=== PATIENT | female | born 1960 | race Caucasian/White ===

== ENCOUNTER 2018-08-11 18:40 | Emergency (ER) | payer MEDICARE, OTHER ==
[~2018-08-11] VITALS: Ht 160 cm; Wt 70.3 kg
[~2018-08-11 18:40] MED LIST: ALBU90OI; ASPI81EC; CALGLU500; CETI10; CLON1; CYAN1000; DOCUSATE; LEVFLO250 PO; LEVFLO500 PO; OXYACE5T PO; OXYACE7.5T; OXYACE7.5T PO; PANT40 PO; PHENA200 PO; PROM25 PO; RANI150; RXOXYACE PO; SERT100; TRIAOIA
[2018-08-11] MEDS ORDERED: PENVK500 PO (20:13)
== END 2018-08-11 20:27 | disposition home or self-care (01) ==
LOC: ER 18:40
DX: K08.89 Other specified disorders of teeth and supporting structures (principal); Z88.2 Allergy status to sulfonamides; Z88.8 Allergy status to other drugs, medicaments and biological substances; Z88.5 Allergy status to narcotic agent; Z79.899 Other long term (current) drug therapy; Z79.82 Long term (current) use of aspirin; Z79.891 Long term (current) use of opiate analgesic
CPT/HCPCS: 64400; 99282-25; J1170

== ENCOUNTER 2019-07-28 13:01 | Emergency (ER) | payer MEDICARE, OTHER ==
[~2019-07-28] VITALS: Ht 162.6 cm; Wt 74.8 kg
[~2019-07-28 13:01] MED LIST changes: +PENVK500 PO
[2019-07-28] MEDS ORDERED: TOPICAINE113 GM TOP ×3 (14:21→15:12)
[2019-07-28] MEDS ORDERED: HYDMOR4 PO ×3 (14:21→15:12)
[2019-07-28] MEDS ORDERED: Amoxicillin500 MG PO ×3 (14:21→15:12)
== END 2019-07-28 14:39 | disposition home or self-care (01) ==
LOC: ER 13:01
DX: K04.7 Periapical abscess without sinus (principal); E03.9 Hypothyroidism, unspecified; Z88.8 Allergy status to other drugs, medicaments and biological substances; Z88.6 Allergy status to analgesic agent; Z88.2 Allergy status to sulfonamides; Z88.5 Allergy status to narcotic agent; Z79.899 Other long term (current) drug therapy; Z79.82 Long term (current) use of aspirin
CPT/HCPCS: 82947; 99283

== ENCOUNTER 2021-04-12 19:22 | Emergency (ER) | payer MEDICARE, OTHER ==
[~2021-04-12] VITALS: Ht 160 cm; Wt 73.9 kg
[~2021-04-12 19:22] MED LIST changes: +Amoxicillin500 MG PO; +CARV3.125 PO; +HYDMOR4 PO; +LEVOTHYROXINE PO; +METH10 PO; +ONDA4ODT SL; +SERT100 PO; +TOPICAINE113 GM TOP
[2021-04-13] MEDS ORDERED: CLOBET30L TOP (01:26)
== END 2021-04-12 20:30 | disposition left against medical advice (07) ==
LOC: ER 19:22
DX: K13.70 Unspecified lesions of oral mucosa (principal); Z53.21 Procedure and treatment not carried out due to patient leaving prior to being seen by health care provider

== ENCOUNTER 2021-05-26 19:14 | Emergency (ER) | payer OTHER ==
[~2021-05-26] VITALS: Ht 160 cm; Wt 77.1 kg
[~2021-05-26 19:14] MED LIST changes: +ABILIFY5 MG PO; +CLOBET30L TOP; +CYCL10 PO
[2021-05-26 20:00] LABS: BASOPHILS ABSOLUTE AUTO 0.02 K/mm3 (0.00-0.23); BASOPHILS PERCENT AUTO 1 % (0-2); EOSINOPHILS ABSOLUTE AUTO 0.13 K/mm3 (0.00-0.68); EOSINOPHILS PERCENT AUTO 3 % (0-6); Hematocrit 39.2 % (33.0-51.0); Hemoglobin 12.8 g/dL (11.5-16.0); IMMATURE GRAN ABSOLUTE AUTO 0.02 K/mm3 (0.00-0.10); IMMATURE GRAN PERCENT AUTO 1 % (0-1); LYMPHOCYTES ABSOLUTE AUTO 1.59 K/mm3 (0.84-5.20); LYMPHOCYTES PERCENT AUTO 37 % (21-46); MONOCYTES ABSOLUTE AUTO 0.37 K/mm3 (0.16-1.47); MONOCYTES PERCENT AUTO 9 % (4-13); Mean Corpuscular HGB Conc 32.7 g/dL (31.5-36.5); Mean Corpuscular Volume 89 fL (80-100); NEUTROPHILS ABSOLUTE AUTO 2.17 K/mm3 (1.96-9.15); NEUTROPHILS PERCENT AUTO 50 % (41-73); RDW Coefficient Variation 12.9 % (11.7-14.2); RDW Standard Deviation 42.3 fL (35.1-46.3); Red Blood Cell Count 4.41 M/mm3 (3.80-5.20)
[2021-05-26 20:01] LABS: Mean Platelet Volume 10.5 fL (9.1-12.4)
[2021-05-26 20:18] LABS: Alanine Aminotransfer (ALT/SGP 32 U/L (12-78); Albumin, Blood 3.2 g/dL (3.4-5.0); Albumin/Globulin Ratio 0.9 (0.8-1.8); Alk Phos 146 U/L (50-136); Anion Gap 5 mmol/L (6-16); Aspartate Aminotrans (AST/SGOT 35 U/L (12-37); Bilirubin, Total 0.3 mg/dL (0.1-1.0); Blood Urea Nitrogen 23 mg/dL (8-24); Bun/Creatinine Ratio 27.3 (12.0-20.0); CO2, Blood 28 mmol/L (21-32); Calcium, Blood 8.8 mg/dL (8.5-10.1); Chloride, Blood 107 mmol/L (98-108); Creatinine, Blood 0.84 mg/dL (0.40-1.00); Globulin, Blood 3.5 g/dL (2.2-4.0); Glomerular Filtration Rate >60 (60-); Glucose, Blood 102 mg/dL (70-99); Potassium, Blood 4.3 mmol/L (3.5-5.5); Sodium, Blood 140 mmol/L (136-145); Total Protein, Blood 6.7 g/dL (6.4-8.2)
== END 2021-05-26 21:50 | disposition home or self-care (01) ==
LOC: ER 19:14
PROVIDERS: Physician Assistant
DX: R60.0 Localized edema (principal); Z88.2 Allergy status to sulfonamides; Z88.8 Allergy status to other drugs, medicaments and biological substances; E03.9 Hypothyroidism, unspecified; Z79.899 Other long term (current) drug therapy
CPT/HCPCS: 71045; 80053; 84484; 85025; 93005; 93010; 93970; 99285-25

== ENCOUNTER → 2022-02-02 | Outpatient (CLI) | payer OTHER ==
[2022-02-03 10:39] LABS: Candida species (DNA Probe) Negative (NEGATIVE); G. vaginalis (DNA Probe) Negative (NEGATIVE); T. vaginalis (DNA Probe) Negative (NEGATIVE)
== END ==
LOC: LAB SHORT 15:35 → LAB 15:35
PROVIDERS: Advanced Practice Midwife
DX: N76.0 Acute vaginitis (principal)
CPT/HCPCS: 87480; 87510; 87660

== ENCOUNTER → 2022-03-25 | Outpatient (CLI) | payer OTHER | END | disposition home or self-care (01) | LOC: LAB SHORT 14:18 | DX: L08.9 Local infection of the skin and subcutaneous tissue, unspecified (principal) | CPT/HCPCS: 87070; 87075; 87077; 87186; 87205 ==

== ENCOUNTER 2022-04-07 11:23 | Emergency (ER) | payer OTHER ==
[~2022-04-07] VITALS: Ht 162.6 cm; Wt 72.6 kg
[2022-04-07 11:55] LABS: BASOPHILS ABSOLUTE AUTO 0.03 K/mm3 (0.00-0.23); BASOPHILS PERCENT AUTO 1 % (0-2); EOSINOPHILS ABSOLUTE AUTO 0.11 K/mm3 (0.00-0.68); EOSINOPHILS PERCENT AUTO 4 % (0-6); Hematocrit 40.2 % (33.0-51.0); Hemoglobin 13.5 g/dL (11.5-16.0); IMMATURE GRAN PERCENT AUTO 0 % (0-1); LYMPHOCYTES ABSOLUTE AUTO 1.53 K/mm3 (0.84-5.20); LYMPHOCYTES PERCENT AUTO 51 % (21-46); MONOCYTES ABSOLUTE AUTO 0.26 K/mm3 (0.16-1.47); MONOCYTES PERCENT AUTO 9 % (4-13); Mean Corpuscular HGB 29.2 pg (26.0-34.0); Mean Corpuscular HGB Conc 33.6 g/dL (31.5-36.5); Mean Corpuscular Volume 87 fL (80-100); Mean Platelet Volume 10.1 fL (9.1-12.4); NEUTROPHILS ABSOLUTE AUTO 1.07 K/mm3 (1.96-9.15); NEUTROPHILS PERCENT AUTO 36 % (41-73); Platelet Count 145 K/mm3 (150-400); RDW Coefficient Variation 12.7 % (11.7-14.2); RDW Standard Deviation 39.9 fL (35.1-46.3); Red Blood Cell Count 4.62 M/mm3 (3.80-5.20)
[2022-04-07] MEDS ORDERED: SERTRALINE HCL PO (12:04)
[2022-04-07] MEDS ORDERED: EUTHYROX50 MC1 PO (12:04)
[2022-04-07] MEDS ORDERED: METHADONE HCL PO (12:05)
[2022-04-07 12:09] LABS: Albumin, Blood 3.5 g/dL (3.4-5.0); Albumin/Globulin Ratio 1.1 (0.8-1.8); Bilirubin, Total 0.5 mg/dL (0.1-1.0); Bun/Creatinine Ratio 25.4 (12.0-20.0); Creatinine, Blood 0.91 mg/dL (0.40-1.00); Globulin, Blood 3.3 g/dL (2.2-4.0); Potassium, Blood 3.8 mmol/L (3.5-5.5); Total Protein, Blood 6.8 g/dL (6.4-8.2)
[2022-04-07] MEDS ORDERED: Norflex100 MG PO (14:22)
== END 2022-04-07 15:14 | disposition home or self-care (01) ==
LOC: ER 11:23
PROVIDERS: Physician Assistant
DX: R07.89 Other chest pain (principal); E03.9 Hypothyroidism, unspecified; I25.2 Old myocardial infarction; Z79.899 Other long term (current) drug therapy
CPT/HCPCS: 36415; 71046; 80053; 83880; 84484; 85025; 93005; 93010; 99285-25; A9270

== ENCOUNTER 2023-03-19 18:09 | Emergency (ER) | payer OTHER ==
[~2023-03-19] VITALS: Ht 165.1 cm; Wt 77.1 kg
[~2023-03-19 18:09] MED LIST changes: +EUTHYROX50 MC1 PO; +METHADONE HCL PO; +Norflex100 MG PO; +SERTRALINE HCL PO
[2023-03-19 18:23] VITALS: BP 187/96
[2023-03-19] MEDS ORDERED: MECL12.5 PO ×2 (18:53→21:01)
[2023-03-19] MEDS ORDERED: FLUT.05NI (18:53)
[2023-03-19 19:17] LABS: BASOPHILS ABSOLUTE AUTO 0.04 K/mm3 (0.00-0.23); BASOPHILS PERCENT AUTO 1 % (0-2); EOSINOPHILS ABSOLUTE AUTO 0.13 K/mm3 (0.00-0.68); EOSINOPHILS PERCENT AUTO 3 % (0-6); Hemoglobin 12.5 g/dL (11.5-16.0); IMMATURE GRAN PERCENT AUTO 0 % (0-1); LYMPHOCYTES ABSOLUTE AUTO 1.68 K/mm3 (0.84-5.20); LYMPHOCYTES PERCENT AUTO 43 % (21-46); MONOCYTES PERCENT AUTO 8 % (4-13); Mean Corpuscular HGB 27.5 pg (26.0-34.0); Mean Corpuscular HGB Conc 32.9 g/dL (31.5-36.5); Mean Corpuscular Volume 84 fL (80-100); Mean Platelet Volume 9.6 fL (9.1-12.4); NEUTROPHILS PERCENT AUTO 46 % (41-73); Platelet Count 151 K/mm3 (150-400); RDW Coefficient Variation 13.9 % (11.7-14.2); RDW Standard Deviation 42.6 fL (35.1-46.3); Red Blood Cell Count 4.55 M/mm3 (3.80-5.20); White Blood Cell Count 3.95 K/mm3 (4.00-11.30)
[2023-03-19 19:40] LABS: Albumin, Blood 3.3 g/dL (3.4-5.0); Albumin/Globulin Ratio 0.9 (0.8-1.8); Bilirubin, Total 0.4 mg/dL (0.1-1.0); Bun/Creatinine Ratio 23.8 (12.0-20.0); Calcium, Blood 9.2 mg/dL (8.5-10.1); Creatinine, Blood 0.93 mg/dL (0.40-1.00); Globulin, Blood 3.8 g/dL (2.2-4.0); Potassium, Blood 2.9 mmol/L (3.5-5.5); Total Protein, Blood 7.1 g/dL (6.4-8.2)
[2023-03-19] MEDS ORDERED: AMOCLA875 PO (21:01)
[2023-03-19] MEDS ORDERED: POTA20PAC PO (21:01)
[2023-03-19] MEDS ORDERED: PROM25 PO (21:01)
== END 2023-03-19 21:24 | disposition home or self-care (01) ==
LOC: ER 18:09
PROVIDERS: Student in an Organized Health Care Education/Training Program
DX: E87.6 Hypokalemia (principal); J32.9 Chronic sinusitis, unspecified; E03.9 Hypothyroidism, unspecified; I25.2 Old myocardial infarction; Z79.899 Other long term (current) drug therapy; Z88.2 Allergy status to sulfonamides; Z88.5 Allergy status to narcotic agent; Z88.6 Allergy status to analgesic agent; Z88.8 Allergy status to other drugs, medicaments and biological substances
CPT/HCPCS: 80053; 85025; 93005; 93010; 96360; 99284-25; A9270; J7030

== ENCOUNTER 2023-04-26 18:24 | Emergency (ER) | payer OTHER ==
[~2023-04-26] VITALS: Ht 160 cm; Wt 81.7 kg
[~2023-04-26 18:24] MED LIST changes: +AMOCLA875 PO; +FLUT.05NI; +MECL12.5 PO; +POTA20PAC PO
[2023-04-26 19:58] LABS: BASOPHILS ABSOLUTE AUTO 0.03 K/mm3 (0.00-0.23); BASOPHILS PERCENT AUTO 1 % (0-2); EOSINOPHILS ABSOLUTE AUTO 0.11 K/mm3 (0.00-0.68); EOSINOPHILS PERCENT AUTO 3 % (0-6); Hematocrit 40.8 % (33.0-51.0); Hemoglobin 13.3 g/dL (11.5-16.0); IMMATURE GRAN PERCENT AUTO 0 % (0-1); LYMPHOCYTES ABSOLUTE AUTO 1.56 K/mm3 (0.84-5.20); LYMPHOCYTES PERCENT AUTO 38 % (21-46); MONOCYTES ABSOLUTE AUTO 0.31 K/mm3 (0.16-1.47); MONOCYTES PERCENT AUTO 8 % (4-13); Mean Corpuscular HGB 27.1 pg (26.0-34.0); Mean Corpuscular HGB Conc 32.6 g/dL (31.5-36.5); Mean Corpuscular Volume 83 fL (80-100); NEUTROPHILS ABSOLUTE AUTO 2.09 K/mm3 (1.96-9.15); NEUTROPHILS PERCENT AUTO 51 % (41-73); Platelet Count 174 K/mm3 (150-400); RDW Coefficient Variation 13.9 % (11.7-14.2); RDW Standard Deviation 42.2 fL (35.1-46.3)
[2023-04-26 20:18] LABS: Albumin, Blood 3.6 g/dL (3.4-5.0); Albumin/Globulin Ratio 0.9 (0.8-1.8); Bilirubin, Total 0.7 mg/dL (0.1-1.0); Bun/Creatinine Ratio 13.2 (12.0-20.0); Calcium, Blood 9.5 mg/dL (8.5-10.1); Creatinine, Blood 0.83 mg/dL (0.40-1.00); Globulin, Blood 3.9 g/dL (2.2-4.0); Potassium, Blood 3.5 mmol/L (3.5-5.5); Total Protein, Blood 7.5 g/dL (6.4-8.2)
[2023-04-26] MEDS ORDERED: METPRE4DP PO (22:03)
[2023-04-26] MEDS ORDERED: Methadone HCL 10 MG TAB PO ONE (22:10)
[2023-04-26] MEDS ORDERED: CloNIDine 0.1 MG Tab SL ONE (22:10)
[2023-04-26] MEDS ORDERED: PredniSONE 20 MG Tab PO ONE (22:10)
[2023-04-26 22:58] VITALS: BP 167/107
== END 2023-04-26 23:08 | disposition home or self-care (01) ==
LOC: ER 18:24
PROVIDERS: Physician Assistant
DX: M54.16 Radiculopathy, lumbar region (principal); M54.12 Radiculopathy, cervical region; I10 Essential (primary) hypertension; F11.23 Opioid dependence with withdrawal; Z88.2 Allergy status to sulfonamides; Z88.6 Allergy status to analgesic agent; Z88.8 Allergy status to other drugs, medicaments and biological substances; Z79.51 Long term (current) use of inhaled steroids; Z79.899 Other long term (current) drug therapy
CPT/HCPCS: 72126; 72132; 80053; 85025; 99284-25; A9270; J7512; Q9967

== ENCOUNTER 2023-10-26 10:45 | Emergency (ER) | payer MEDICARE, OTHER ==
[~2023-10-26] VITALS: Ht 160 cm; Wt 94.3 kg
[~2023-10-26 10:45] MED LIST changes: +LOSARTAN-HCTZ1 EAC5 PO; +METPRE4DP PO
[2023-10-26 11:20] LABS: BASOPHILS ABSOLUTE AUTO 0.02 K/mm3 (0.00-0.23); BASOPHILS PERCENT AUTO 0 % (0-2); EOSINOPHILS ABSOLUTE AUTO 0.14 K/mm3 (0.00-0.68); EOSINOPHILS PERCENT AUTO 3 % (0-6); Hematocrit 37.5 % (33.0-51.0); Hemoglobin 12.4 g/dL (11.5-16.0); IMMATURE GRAN ABSOLUTE AUTO 0.01 K/mm3 (0.00-0.10); IMMATURE GRAN PERCENT AUTO 0 % (0-1); LYMPHOCYTES PERCENT AUTO 38 % (21-46); MONOCYTES ABSOLUTE AUTO 0.34 K/mm3 (0.16-1.47); MONOCYTES PERCENT AUTO 8 % (4-13); Mean Corpuscular HGB 28.6 pg (26.0-34.0); Mean Corpuscular HGB Conc 33.1 g/dL (31.5-36.5); Mean Corpuscular Volume 86 fL (80-100); NEUTROPHILS ABSOLUTE AUTO 2.25 K/mm3 (1.96-9.15); NEUTROPHILS PERCENT AUTO 51 % (41-73); Platelet Count 158 K/mm3 (150-400); RDW Coefficient Variation 13.2 % (11.7-14.2); RDW Standard Deviation 41.8 fL (35.1-46.3); Red Blood Cell Count 4.34 M/mm3 (3.80-5.20); White Blood Cell Count 4.46 K/mm3 (4.00-11.30)
[2023-10-26 11:52] LABS: Albumin, Blood 3.3 g/dL (3.4-5.0); Albumin/Globulin Ratio 0.8 (0.8-1.8); Bilirubin, Total 0.5 mg/dL (0.1-1.0); Bun/Creatinine Ratio 19.5 (12.0-20.0); Calcium, Blood 9.1 mg/dL (8.5-10.1); Creatinine, Blood 0.92 mg/dL (0.40-1.00); Globulin, Blood 3.9 g/dL (2.2-4.0); Potassium, Blood 3.4 mmol/L (3.5-5.5); Total Protein, Blood 7.2 g/dL (6.4-8.2)
[2023-10-26] MEDS ORDERED: TraMADol HCl 50 MG Tab PO ONE (14:40)
[2023-10-26] MEDS ORDERED: Lasix20 MG PO (16:24)
[2023-10-26 16:30] VITALS: BP 175/101
== END 2023-10-26 16:48 | disposition home or self-care (01) ==
LOC: ER 10:45
PROVIDERS: Physician Assistant
DX: R60.0 Localized edema (principal); E03.9 Hypothyroidism, unspecified; I21.4 Non-ST elevation (NSTEMI) myocardial infarction; Z79.899 Other long term (current) drug therapy; Z79.51 Long term (current) use of inhaled steroids; Z88.6 Allergy status to analgesic agent; Z88.2 Allergy status to sulfonamides; Z88.5 Allergy status to narcotic agent; Z88.8 Allergy status to other drugs, medicaments and biological substances
CPT/HCPCS: 71046; 80053; 83880; 84484; 85025; 93005; 93010; 93970; 99284-25; A9270

== ENCOUNTER 2024-01-02 13:31 | Emergency (ER) | payer MEDICARE, OTHER ==
[~2024-01-02] VITALS: Ht 162.6 cm; Wt 86.2 kg
[~2024-01-02 13:31] MED LIST changes: +LIDO700A20 TOP; +Lasix20 MG PO; +PANTOPRAZOLE SO40 M2 PO; +Robaxin750 MG PO
[2024-01-02 14:23] LABS: BASOPHILS ABSOLUTE AUTO 0.03 K/mm3 (0.00-0.23); BASOPHILS PERCENT AUTO 1 % (0-2); EOSINOPHILS ABSOLUTE AUTO 0.16 K/mm3 (0.00-0.68); EOSINOPHILS PERCENT AUTO 4 % (0-6); Hematocrit 36.9 % (33.0-51.0); Hemoglobin 11.9 g/dL (11.5-16.0); IMMATURE GRAN ABSOLUTE AUTO 0.01 K/mm3 (0.00-0.10); IMMATURE GRAN PERCENT AUTO 0 % (0-1); LYMPHOCYTES PERCENT AUTO 36 % (21-46); MONOCYTES ABSOLUTE AUTO 0.31 K/mm3 (0.16-1.47); MONOCYTES PERCENT AUTO 7 % (4-13); Mean Corpuscular HGB 27.6 pg (26.0-34.0); Mean Corpuscular HGB Conc 32.2 g/dL (31.5-36.5); Mean Corpuscular Volume 86 fL (80-100); Mean Platelet Volume 9.9 fL (9.1-12.4); NEUTROPHILS ABSOLUTE AUTO 2.31 K/mm3 (1.96-9.15); NEUTROPHILS PERCENT AUTO 52 % (41-73); Platelet Count 171 K/mm3 (150-400); RDW Coefficient Variation 13.2 % (11.7-14.2); Red Blood Cell Count 4.31 M/mm3 (3.80-5.20); White Blood Cell Count 4.42 K/mm3 (4.00-11.30)
[2024-01-02 15:24] LABS: Albumin, Blood 3.4 g/dL (3.4-5.0); Albumin/Globulin Ratio 1.1 (0.8-1.8); Bilirubin, Total 0.4 mg/dL (0.1-1.0); Bun/Creatinine Ratio 18.8 (12.0-20.0); Creatinine, Blood 0.96 mg/dL (0.40-1.00); Globulin, Blood 3.2 g/dL (2.2-4.0); Potassium, Blood 3.5 mmol/L (3.5-5.5); Total Protein, Blood 6.6 g/dL (6.4-8.2)
[2024-01-02] MEDS ORDERED: TraMADol HCl 50 MG Tab PO ONE (21:05)
[2024-01-02 21:34] LABS: Source, Urine Clean Catch
[2024-01-02 21:36] LABS: Bilirubin, Urine Neg (Neg); Blood, Urine Neg (Neg); Glucose Qualitative, Urine Neg (Neg); Ketones, Urine Neg (Neg); Leukocyte Esterase, Urine 1+ (Neg); Nitrite, Urine Neg (Neg); Protein, Urine Neg (Neg); Specific Gravity, Urine 1.015 (1.003-1.022); Urobilinogen, Urine NORM (Normal)
[2024-01-02 21:49] LABS: Appearance, Urine Clear (Clear); Bacteria Not Seen /hpf; Calcium Oxalate Crystals Many /hpf; Color, Urine Yellow (P-Yellow); Red Blood Cells, Urine Not Seen /hpf (0-2); Squamous Epithelial Cells Not Seen /hpf (Few); White Blood Cells, Urine 0-2 /hpf (0-5)
[2024-01-02 22:15] VITALS: BP 161/101
== END 2024-01-02 23:14 | disposition home or self-care (01) ==
LOC: ER 13:31
PROVIDERS: Physician Assistant
DX: R51.9 Headache, unspecified (principal); R32 Unspecified urinary incontinence; E03.9 Hypothyroidism, unspecified; I25.2 Old myocardial infarction; Z88.8 Allergy status to other drugs, medicaments and biological substances; Z88.6 Allergy status to analgesic agent; Z88.2 Allergy status to sulfonamides; Z88.5 Allergy status to narcotic agent; Z79.899 Other long term (current) drug therapy; Z79.890 Hormone replacement therapy
CPT/HCPCS: 70450; 80053; 81001; 85025; 99284-25; A9270

== ENCOUNTER → 2024-01-31 | Outpatient (CLI) | payer MEDICARE, OTHER ==
[2024-01-31 18:58] LABS: Appearance, Urine Clear (Clear); Bilirubin, Urine Neg (Neg); Blood, Urine Neg (Neg); Color, Urine Yellow (P-Yellow); Glucose Qualitative, Urine Neg (Neg); Ketones, Urine Neg (Neg); Leukocyte Esterase, Urine 1+ (Neg); Nitrite, Urine Neg (Neg); Protein, Urine 1+ (Neg); Specific Gravity, Urine 1.015 (1.003-1.022); Urobilinogen, Urine NORM (Normal)
[2024-01-31 19:11] LABS: Bacteria Many /hpf; Mucus Light (0-Heavy); Red Blood Cells, Urine 0-2 /hpf (0-2); Squamous Epithelial Cells Few /hpf (Few)
== END | disposition home or self-care (01) ==
LOC: LAB SHORT 18:50
PROVIDERS: Family Medicine
DX: N39.46 Mixed incontinence (principal)
CPT/HCPCS: 81001

== ENCOUNTER → 2024-02-22 | Outpatient (CLI) | payer MEDICARE, OTHER ==
[~2024-02-22] MED LIST changes: +METHADONE HCL1010 PO; +Methocarbamol750 MG PO
[2024-02-22 20:55] LABS: Creatinine, Urine Random 89.2 mg/dL (27.00-270.00)
[2024-02-22 21:02] LABS: Microalb/Creat Ratio UR, Rand 40.359 mg/g (0.000-30.000)
== END ==
LOC: LAB 18:33 → LAB SHORT 18:33
PROVIDERS: Family Medicine
DX: R03.0 Elevated blood-pressure reading, without diagnosis of hypertension (principal); N39.46 Mixed incontinence
CPT/HCPCS: 82043; 82570; 87086

== ENCOUNTER 2024-02-29 19:55 | Emergency (ER) | payer MEDICARE, OTHER ==
[~2024-02-29] VITALS: Ht 167.6 cm; Wt 74.8 kg
[~2024-02-29 19:55] MED LIST changes: -METHADONE HCL1010 PO; -Methocarbamol750 MG PO
[2024-02-29] MEDS ORDERED: Methocarbamol750 MG PO (20:19)
[2024-02-29] MEDS ORDERED: METHADONE HCL1010 PO (20:19)
[2024-02-29 20:25] LABS: BASOPHILS ABSOLUTE AUTO 0.02 K/mm3 (0.00-0.23); BASOPHILS PERCENT AUTO 1 % (0-2); EOSINOPHILS ABSOLUTE AUTO 0.06 K/mm3 (0.00-0.68); EOSINOPHILS PERCENT AUTO 2 % (0-6); Hematocrit 40.5 % (33.0-51.0); Hemoglobin 13.2 g/dL (11.5-16.0); IMMATURE GRAN PERCENT AUTO 0 % (0-1); LYMPHOCYTES ABSOLUTE AUTO 1.87 K/mm3 (0.84-5.20); LYMPHOCYTES PERCENT AUTO 59 % (21-46); MONOCYTES PERCENT AUTO 6 % (4-13); Mean Corpuscular HGB 27.8 pg (26.0-34.0); Mean Corpuscular HGB Conc 32.6 g/dL (31.5-36.5); Mean Corpuscular Volume 85 fL (80-100); Mean Platelet Volume 9.4 fL (9.1-12.4); NEUTROPHILS ABSOLUTE AUTO 1.03 K/mm3 (1.96-9.15); NEUTROPHILS PERCENT AUTO 32 % (41-73); Platelet Count 169 K/mm3 (150-400); RDW Coefficient Variation 14.3 % (11.7-14.2); RDW Standard Deviation 44.5 fL (35.1-46.3); Red Blood Cell Count 4.75 M/mm3 (3.80-5.20); White Blood Cell Count 3.18 K/mm3 (4.00-11.30)
[2024-02-29 20:50] LABS: Albumin, Blood 3.7 g/dL (3.4-5.0); Albumin/Globulin Ratio 0.9 (0.8-1.8); Bilirubin, Total 0.6 mg/dL (0.1-1.0); Bun/Creatinine Ratio 17.7 (12.0-20.0); Calcium, Blood 9.6 mg/dL (8.5-10.1); Creatinine, Blood 1.13 mg/dL (0.40-1.00); Globulin, Blood 4.1 g/dL (2.2-4.0); Potassium, Blood 4.2 mmol/L (3.5-5.5); Total Protein, Blood 7.8 g/dL (6.4-8.2)
[2024-02-29] MEDS ORDERED: HYDROmorphone HCl/Pf 1MG SYR IV ONE (23:05)
[2024-02-29] MEDS ORDERED: Promethazine HCl 25 MG Supp PR ONE (23:10)
[2024-02-29 23:45] VITALS: BP 162/92
== END 2024-03-01 00:50 | disposition short-term general hospital (02) ==
LOC: ER 19:55
PROVIDERS: Physician Assistant
DX: T54.91XA Toxic effect of unspecified corrosive substance, accidental (unintentional), initial encounter (principal); E03.9 Hypothyroidism, unspecified; I25.2 Old myocardial infarction; Z79.52 Long term (current) use of systemic steroids; Z79.899 Other long term (current) drug therapy; Z88.2 Allergy status to sulfonamides; Z88.5 Allergy status to narcotic agent; Z88.8 Allergy status to other drugs, medicaments and biological substances
CPT/HCPCS: 71045; 80053; 85025; 93005; 93010; 96374; 99285-25; A9270; J1171

== ENCOUNTER 2024-03-12 14:23 | Emergency (ER) | payer OTHER ==
[~2024-03-12] VITALS: Ht 160 cm; Wt 89.4 kg
[~2024-03-12 14:23] MED LIST changes: +METHADONE HCL1010 PO; +Methocarbamol750 MG PO
[2024-03-12 14:50] VITALS: BP 201/138
[2024-03-12] MEDS ORDERED: AMOCLA875 PO (16:00)
[2024-03-12] MEDS ORDERED: Methadone HCL 10 MG TAB PO ONE (16:00)
== END 2024-03-12 16:45 | disposition home or self-care (01) ==
LOC: ER 14:23
DX: L02.511 Cutaneous abscess of right hand (principal); Z76.0 Encounter for issue of repeat prescription; I25.2 Old myocardial infarction; Z88.2 Allergy status to sulfonamides; Z88.5 Allergy status to narcotic agent; Z88.8 Allergy status to other drugs, medicaments and biological substances
CPT/HCPCS: 99281; A9270

== ENCOUNTER 2024-03-13 10:27 | Emergency (ER) | payer OTHER ==
[~2024-03-13] VITALS: Ht 160 cm; Wt 89.4 kg
[2024-03-13 10:59] VITALS: BP 185/127
[2024-03-13] MEDS ORDERED: Methadone HCL 10 MG TAB PO ONE (14:00)
== END 2024-03-13 14:15 | disposition home or self-care (01) ==
LOC: ER 10:27
DX: F11.90 Opioid use, unspecified, uncomplicated (principal); Z76.0 Encounter for issue of repeat prescription; I25.2 Old myocardial infarction; E03.9 Hypothyroidism, unspecified; R42 Dizziness and giddiness; E16.2 Hypoglycemia, unspecified; Z88.2 Allergy status to sulfonamides; Z88.6 Allergy status to analgesic agent; Z88.5 Allergy status to narcotic agent; Z88.8 Allergy status to other drugs, medicaments and biological substances
CPT/HCPCS: 99281; A9270

== ENCOUNTER 2024-03-15 11:52 | Emergency (ER) | payer OTHER ==
[~2024-03-15] VITALS: Ht 157.5 cm; Wt 89.4 kg
[2024-03-15 12:21] LABS: BASOPHILS ABSOLUTE AUTO 0.03 K/mm3 (0.00-0.23); BASOPHILS PERCENT AUTO 1 % (0-2); EOSINOPHILS ABSOLUTE AUTO 0.05 K/mm3 (0.00-0.68); EOSINOPHILS PERCENT AUTO 1 % (0-6); Hematocrit 40.3 % (33.0-51.0); Hemoglobin 13.1 g/dL (11.5-16.0); IMMATURE GRAN ABSOLUTE AUTO 0.01 K/mm3 (0.00-0.10); IMMATURE GRAN PERCENT AUTO 0 % (0-1); LYMPHOCYTES ABSOLUTE AUTO 1.12 K/mm3 (0.84-5.20); LYMPHOCYTES PERCENT AUTO 27 % (21-46); MONOCYTES ABSOLUTE AUTO 0.21 K/mm3 (0.16-1.47); MONOCYTES PERCENT AUTO 5 % (4-13); Mean Corpuscular HGB 27.8 pg (26.0-34.0); Mean Corpuscular HGB Conc 32.5 g/dL (31.5-36.5); Mean Corpuscular Volume 86 fL (80-100); Mean Platelet Volume 9.8 fL (9.1-12.4); NEUTROPHILS ABSOLUTE AUTO 2.72 K/mm3 (1.96-9.15); NEUTROPHILS PERCENT AUTO 66 % (41-73); Platelet Count 191 K/mm3 (150-400); Red Blood Cell Count 4.71 M/mm3 (3.80-5.20); White Blood Cell Count 4.14 K/mm3 (4.00-11.30)
[2024-03-15 12:40] LABS: Albumin, Blood 3.5 g/dL (3.4-5.0); Albumin/Globulin Ratio 0.9 (0.8-1.8); Bilirubin, Total 0.7 mg/dL (0.1-1.0); Bun/Creatinine Ratio 18.5 (12.0-20.0); Calcium, Blood 9.7 mg/dL (8.5-10.1); Creatinine, Blood 1.08 mg/dL (0.40-1.00); Globulin, Blood 3.8 g/dL (2.2-4.0); Potassium, Blood 3.2 mmol/L (3.5-5.5); Total Protein, Blood 7.3 g/dL (6.4-8.2)
[2024-03-15] MEDS ORDERED: Magnesium Oxide 400 MG Tab PO ONE (15:15)
[2024-03-15] MEDS ORDERED: NS 1,000 ML IV SCH (15:15)
[2024-03-15] MEDS ORDERED: Potassium Chloride 20 MEQ TabCR PO ONE (15:15)
[2024-03-15] MEDS ORDERED: Methadone HCL 10 MG TAB PO ONE (17:05)
[2024-03-15] MEDS ORDERED: POTA10T PO (17:12)
[2024-03-15 18:15] VITALS: BP 175/82
== END 2024-03-15 18:30 | disposition home or self-care (01) ==
LOC: ER 11:52
PROVIDERS: Physician Assistant
DX: R55 Syncope and collapse (principal); E87.6 Hypokalemia; Z88.8 Allergy status to other drugs, medicaments and biological substances; Z88.6 Allergy status to analgesic agent; Z88.2 Allergy status to sulfonamides; Z88.5 Allergy status to narcotic agent; Z79.899 Other long term (current) drug therapy; E03.9 Hypothyroidism, unspecified; I25.2 Old myocardial infarction
CPT/HCPCS: 71045; 80053; 85025; 85379; 93005; 93010; 96360; 99284-25; A9270; J7030

== ENCOUNTER 2024-03-19 13:48 | Emergency (ER) | payer OTHER ==
[~2024-03-19] VITALS: Ht 157.5 cm; Wt 89.4 kg
[~2024-03-19 13:48] MED LIST changes: +POTA10T PO
[2024-03-19 13:59] VITALS: BP 140/109
[2024-03-19] MEDS ORDERED: Methadone HCL 10 MG TAB PO ONE (15:30)
== END 2024-03-19 16:04 | disposition home or self-care (01) ==
LOC: ER 13:48
DX: G89.29 Other chronic pain (principal); M54.2 Cervicalgia; M54.9 Dorsalgia, unspecified; Z59.89 Other problems related to housing and economic circumstances
CPT/HCPCS: 99282; A9270

== ENCOUNTER 2024-03-27 12:03 | Emergency (ER) | payer OTHER ==
[~2024-03-27] VITALS: Ht 157.5 cm; Wt 89.4 kg
[2024-03-27 12:12] VITALS: BP 165/111
[2024-03-27 14:02] LABS: U Amphetamine Screen Not Detected; U Barbituate Screen Not Detected; U Benzodiazapine Screen Not Detected; U Buprenorphine Screen Not Detected; U Cannabinoids Screen DETECTED; U Cocaine Screen Not Detected; U Methadone Screen DETECTED; U Methamphetamine Screen Not Detected; U Opiates Screen Not Detected; U Oxycodone Screen Not Detected; U Phencyclidine Screen Not Detected
[2024-03-27] MEDS ORDERED: Buprenorphine HCL/Naloxone HCL 8MG-2MG Tab SL ONE (14:20)
== END 2024-03-27 15:19 | disposition home or self-care (01) ==
LOC: ER 12:03
PROVIDERS: Physician Assistant
DX: G89.29 Other chronic pain (principal); E03.9 Hypothyroidism, unspecified; I25.2 Old myocardial infarction; Z88.8 Allergy status to other drugs, medicaments and biological substances; Z88.6 Allergy status to analgesic agent; Z88.2 Allergy status to sulfonamides; Z88.5 Allergy status to narcotic agent; Z79.899 Other long term (current) drug therapy
CPT/HCPCS: 99281; A9270

== ENCOUNTER 2024-03-29 01:42 | Day surgery (SDC) | payer OTHER ==
[2024-03-29] MEDS ORDERED: Sod Ferric Gluc Complx/Sucrose 125 MG in NS 100 ML IV SCH (06:00)
[2024-03-29 14:35] VITALS: BP 145/109
[2024-03-29] MEDS ORDERED: BUPRENO-NALOX1 EAC2 SL (15:07)
[2024-03-29] MEDS ORDERED: RIZATRIPTAN5 M1 PO (15:08)
== END 2024-03-29 15:48 | disposition home or self-care (01) ==
LOC: ATC 01:42
DX: E61.1 Iron deficiency (principal); E03.9 Hypothyroidism, unspecified; N18.31 Chronic kidney disease, stage 3a; F11.20 Opioid dependence, uncomplicated; G89.29 Other chronic pain; M54.50 Low back pain, unspecified
CPT/HCPCS: 96365; J2916

== ENCOUNTER 2024-04-26 10:10 | Emergency (ER) | payer OTHER ==
[~2024-04-26] VITALS: Ht 160 cm; Wt 92.1 kg
[~2024-04-26 10:10] MED LIST changes: +BUPRENO-NALOX1 EAC2 SL; +RIZATRIPTAN5 M1 PO
[2024-04-26] MEDS ORDERED: Ondansetron HCl 2 MG / ML 2ML Vial IV PRN (10:25)
[2024-04-26] MEDS ORDERED: BUPRENORP-NALO1 EAC3 SL (10:56)
[2024-04-26] MEDS ORDERED: Phenergan25 M1 PO (10:56)
[2024-04-26] MEDS ORDERED: Famotidine 10 MG/ML 2ML Vial IV ONE (11:00)
[2024-04-26] MEDS ORDERED: NS 1,000 ML IV SCH (11:00)
[2024-04-26] MEDS ORDERED: Buprenorphine HCL/Naloxone HCL 8MG-2MG Tab SL ONE (11:00)
[2024-04-26] MEDS ORDERED: Prochlorperazine Edisylate 10 mg Vial IV ONE (11:00)
[2024-04-26 11:01] LABS: BASOPHILS ABSOLUTE AUTO 0.03 K/mm3 (0.00-0.23); BASOPHILS PERCENT AUTO 1 % (0-2); EOSINOPHILS PERCENT AUTO 2 % (0-6); Hematocrit 42.1 % (33.0-51.0); Hemoglobin 13.7 g/dL (11.5-16.0); IMMATURE GRAN ABSOLUTE AUTO 0.01 K/mm3 (0.00-0.10); IMMATURE GRAN PERCENT AUTO 0 % (0-1); LYMPHOCYTES ABSOLUTE AUTO 1.99 K/mm3 (0.84-5.20); LYMPHOCYTES PERCENT AUTO 47 % (21-46); MONOCYTES ABSOLUTE AUTO 0.32 K/mm3 (0.16-1.47); MONOCYTES PERCENT AUTO 8 % (4-13); Mean Corpuscular HGB 28.4 pg (26.0-34.0); Mean Corpuscular HGB Conc 32.5 g/dL (31.5-36.5); Mean Corpuscular Volume 87 fL (80-100); NEUTROPHILS PERCENT AUTO 42 % (41-73); Platelet Count 165 K/mm3 (150-400); RDW Coefficient Variation 15.3 % (11.7-14.2); RDW Standard Deviation 49.1 fL (35.1-46.3); Red Blood Cell Count 4.82 M/mm3 (3.80-5.20); White Blood Cell Count 4.25 K/mm3 (4.00-11.30)
[2024-04-26 11:27] LABS: Albumin, Blood 3.5 g/dL (3.4-5.0); Albumin/Globulin Ratio 0.9 (0.8-1.8); Bilirubin, Total 0.5 mg/dL (0.1-1.0); Bun/Creatinine Ratio 25.4 (12.0-20.0); Calcium, Blood 9.4 mg/dL (8.5-10.1); Creatinine, Blood 0.98 mg/dL (0.40-1.00); Globulin, Blood 3.8 g/dL (2.2-4.0); Potassium, Blood 4.6 mmol/L (3.5-5.5); Total Protein, Blood 7.3 g/dL (6.4-8.2)
[2024-04-26 12:59] LABS: Source, Urine Clean Catch
[2024-04-26 13:17] LABS: Appearance, Urine Clear (Clear); Bilirubin, Urine Neg (Neg); Blood, Urine Neg (Neg); Color, Urine Yellow (P-Yellow); Glucose Qualitative, Urine Neg (Neg); Ketones, Urine Neg (Neg); Leukocyte Esterase, Urine Neg (Neg); Nitrite, Urine Neg (Neg); Protein, Urine Neg (Neg); Specific Gravity, Urine 1.015 (1.003-1.022); Urobilinogen, Urine NORM (Normal)
[2024-04-26] MEDS ORDERED: Mag Hydrox/AL Hydrox/Simeth 30 ML UDC PO ONE (14:10)
[2024-04-26 14:30] VITALS: BP 134/82
[2024-04-26] MEDS ORDERED: FAMO40 PO (15:17)
== END 2024-04-26 15:25 | disposition home or self-care (01) ==
LOC: ER 10:10
PROVIDERS: Emergency Medicine
DX: K29.70 Gastritis, unspecified, without bleeding (principal); Z79.899 Other long term (current) drug therapy; Z88.8 Allergy status to other drugs, medicaments and biological substances; Z88.5 Allergy status to narcotic agent; Z88.2 Allergy status to sulfonamides
CPT/HCPCS: 74177; 80053; 81003; 83690; 85025; 93005; 93010; 99284-25; A9270; J0780; J7030; Q9967

== ENCOUNTER 2024-05-29 09:28 | Emergency (ER) | payer OTHER ==
[~2024-05-29] VITALS: Ht 160 cm; Wt 86.2 kg
[~2024-05-29 09:28] MED LIST changes: +BUPRENORP-NALO1 EAC3 SL; +FAMO40 PO; +Phenergan25 M1 PO
[2024-05-29 09:43] VITALS: BP 159/122
[2024-05-29] MEDS ORDERED: ALBUTEROL SULFATE HF (10:40)
[2024-05-29] MEDS ORDERED: ZYRTEC10 M2 PO (10:42)
== END 2024-05-29 11:27 | disposition home or self-care (01) ==
LOC: ER 09:28
DX: M25.551 Pain in right hip (principal); M54.50 Low back pain, unspecified; M54.2 Cervicalgia; M25.562 Pain in left knee; G89.29 Other chronic pain; V79.9XXA Bus occupant (driver) (passenger) injured in unspecified traffic accident, initial encounter
CPT/HCPCS: 72040; 72100; 73502; 73562-LT; 99283-25